=== PATIENT | female | born 1975 | race Caucasian/White ===

== ENCOUNTER 2024-10-10 06:31 | Day surgery (SDC) | payer OTHER ==
[~2024-10-10] VITALS: Ht 160 cm; Wt 90.3 kg
[~2024-10-10 06:31] MED LIST: ASPI-1450 PO; INSU100I26 SQ; LISI-894 PO; METF-1211 PO; OMEP-148 PO
[2024-10-10] MEDS ORDERED: SODIUM CHLORIDE 0.9% 1,000 ML ONE (06:36)
[2024-10-10] MEDS: SODIUM CHLORIDE 0.9% 1,000 ML IV ONE (07:43)
[2024-10-10 07:51] LABS: GLUCOMETER DEV NAME(LOC) SDS.; GLUCOSE,POINT OF CARE 128 MG/DL (70-110)
[2024-10-10] MEDS ORDERED: PROPOFOL 1% 20 ML VIAL IVP ONE (12:00)
[2024-10-10] MEDS ORDERED: GLYCOPYRROLATE 0.2 MG/ML VIAL ONE (12:00)
== END 2024-10-10 12:05 | disposition home or self-care (01) ==
LOC: SURGERY 06:31
PROVIDERS: ATTEND Internal Medicine
DX: K21.9 Gastro-esophageal reflux disease without esophagitis (principal); K31.7 Polyp of stomach and duodenum; E10.9 Type 1 diabetes mellitus without complications; I10 Essential (primary) hypertension; Z79.899 Other long term (current) drug therapy
CPT/HCPCS: 43251; 82962; 84703; 88305; C1769; J2704; J3490; J7030